=== PATIENT | male | born 1930 | race Caucasian/White ===

== ENCOUNTER 2017-03-08 03:12 | Emergency (ER) | payer OTHER, MEDICARE ==
[~2017-03-08] VITALS: Ht 188 cm; Wt 104.3 kg
--- NOTE | ~2017-03-08 | EKG ---
[address] [address] ELECTROCARDIOGRAM REPORT Name: EVBABAR HARRELL [id number] Admission: 03/08/17 Attend Phys: Discharge: 03/08/17 Date of : 34 Report #: [id number] THIS REPORT FOR: //name// [facility] ED Test Date: 2017-03-08 Test Time: 03:17:05 Pat Name: BABAR CARRENO Department: Room: Gender: M [employer] Work[employer]: Uri MOBLEY : 1930 Requested By: Nick Chacon Order Number: [id number] MD: Navjot Barboza Measurements Intervals [place] Rate: 76 P: 36 SD: 187 QRS: 8 QRSD: 99 T: 25 QT: 412 QTc: 464 Interpretive Statements Sinus rhythm Normal tracing Compared to ECG 08/26/2007 20:06:56 Sinus tachycardia no longer present Electronically Signed On 03-08-2017 8:22:20 CDT by Navjot Barboza [email or web address] <ELECTRONICALLY SIGNED> By: Navjot Babroza MD, [facility] 03/08/17 0822 6 6 Navjot Barboza MD, FACC /EPI
[2017-03-08] MEDS ORDERED: TRAMADOL 50 MG50 MG (03:27)
[2017-03-08] MEDS ORDERED: TOPROL XL25 MG (03:28)
[2017-03-08 03:48] LABS: HEMATOCRIT 42.8 % (42.0-52.0); HEMOGLOBIN 14.5 gm/dL (14.0-18.0); MCH 30.1 pg (26.0-34.0); MCHC 33.9 g/dL (28.0-37.0); MCV 88.8 fL (80.0-100.0); RBC 4.82 mil/uL (4.50-6.00); RDW 13.6 % (10.5-14.5); WBC 7.1 thou/uL (4.0-11.0)
[2017-03-08 03:55] LABS: ANION GAP 7 mmol/L (7-16); BUN 18 mg/dL (7-18); CALCIUM 8.7 mg/dL (8.5-10.1); CHLORIDE 101 mmol/L (98-107); CO2 28 mmol/L (21-32); GLUCOSE 173 mg/dL (74-106); POTASSIUM 4.2 mmol/L (3.5-5.1); SODIUM 136 mmol/L (136-145)
[2017-03-08 04:06] LABS: ALBUMIN 3.9 g/dL (3.4-5.0); ALKALINE PHOSPHATASE 55 U/L (46-116); DIRECT BILIRUBIN 0.1 mg/dL (<0.1-0.3); SGOT 23 U/L (15-37); SGPT 22 U/L (30-65); TOTAL BILIRUBIN 0.4 mg/dL (<0.1-1.0); TOTAL PROTEIN 7.1 g/dL (6.4-8.2); TROPONIN-I < 0.04 ng/mL (<0.04-0.07)
[2017-03-08 04:47] LABS: URINE BILIRUBIN NEGATIVE (Negative); URINE BLOOD NEGATIVE (Negative); URINE COLOR YELLOW; URINE GLUCOSE-RANDOM* NEGATIVE (Negative); URINE KETONES NEGATIVE (Negative); URINE LEUKOCYTES-REFLEX NEGATIVE (Negative); URINE PROTEIN (DIPSTICK) NEGATIVE (Negative); URINE SPECIFIC GRAVITY >= 1.030 (1.003-1.035)
[2017-03-08] MEDS ORDERED: ZOFRAN ODT4 MG PO (05:51)
[2017-03-08] MEDS ORDERED: NORCO 5-325 TA1 EACH PO (05:51)
[2017-03-08 06:00] VITALS: BP 152/74
== END 2017-03-08 06:04 | disposition home or self-care (01) ==
LOC: ER 03:12
PROVIDERS: Emergency Medicine
DX: S40.011A Contusion of right shoulder, initial encounter (principal); R11.2 Nausea with vomiting, unspecified; R55 Syncope and collapse; T40.4X5A Adverse effect of other synthetic narcotics, initial encounter; Y92.89 Other specified places as the place of occurrence of the external cause; E78.00 Pure hypercholesterolemia, unspecified; F10.99 Alcohol use, unspecified with unspecified alcohol-induced disorder; Z98.890 Other specified postprocedural states; W22.01XA Walked into wall, initial encounter; Y93.02 Activity, running; Y99.8 Other external cause status